=== PATIENT | female | born 1985 | race Caucasian/White ===

== ENCOUNTER 2021-01-16 17:25 | Inpatient (IN) | payer BC, MEDICAID ==
--- NOTE | 2021-01-16 17:31 | ERPHSYRPT ---
- History of Present Illness Time Seen by Provider: 01/16/21 17:30 Source: patient Exam Limitations: clinical condition Physician History: This is a 35-year-old diabetic obese white female who was having symptoms on 01/07/2021 of nausea vomiting fevers body aches and mild cough. She recently found out that she was positive for the COVID-19 virus. Patient was in the [facility] infusion unit earlier today and was running low oxygen saturation. Patient states that she was not significantly short of breath. Patient continued the infusion but her oxygen saturations were still low. she then opted to come to the emergency department for evaluation. Timing/Duration: day(s) Activities at Onset: none Severity of Dyspnea-Max: moderate Severity of Dyspnea-Current: moderate Possible Cause: illness exposure (Covid positive) Modifying Factors: Improves With: coughing Associated Symptoms: cough, No chest pain/discomfort Allergies/Adverse Reactions: Penicillins Allergy (Verified 01/16/21 17:37) Home Medications: Albuterol 8 gm Mdi Hfa [Ventolin Hfa MDI] 1 ea QID 01/16/21 [History] Azithromycin 250 mg [Zithromax 250 MG TABLET] 1 ea DAILY 01/16/21 [History] Benzonatate 1 ea TID 01/16/21 [History] Prednisone 10 mg [Deltasone 10 mg] 20 mg BID 01/16/21 [History] Travel Risk - International Travel Have you traveled outside of the country in past 3 weeks: No - Coronavirus Screening Are you exhibiting any of the following symptoms?: Yes Symptoms: Cough: New Onset, Shortness of Breath, Headaches/Body Aches/Fatigue Close contact with a COVID-19 positive Pt in past 14-21 Days: Yes - Vaccine Status Have you recieved a Covid-19 vaccination: Yes - Review of Systems Constitutional: No Symptoms Eyes: No Symptoms Ears, Nose, & Throat: No Symptoms Respiratory: Cough, Dyspnea Cardiac: No Symptoms Abdominal/Gastrointestinal: No Symptoms Genitourinary Symptoms: No Symptoms Musculoskeletal: No Symptoms Skin: No Symptoms Neurological: No Symptoms Psychological: No Symptoms Endocrine: No Symptoms Hematologic/Lymphatic: No Symptoms Immunological/Allergic: No Symptoms All Other Systems: Reviewed and Negative - Past Medical History Pertinent Past Medical History: Yes - Past Surgical History Past Surgical History: Yes - Nursing Vital Signs Nursing Vital Signs: Initial Vital Signs Temperature 97.2 F 01/16/21 17:26 Pulse Rate 105 H 01/16/21 17:26 Respiratory Rate 20 01/16/21 17:26 Blood Pressure 140/92 01/16/21 17:26 O2 Sat by Pulse Oximetry 88 L 01/16/21 17:26 Pain Scale Pain Intensity 3 - Physical Exam General Appearance: mild distress, alert, anxiety, obese Eye Exam: PERRL/EOMI, eyes nml inspection Ears, Nose, Throat Exam: hearing grossly normal, normal ENT inspection, normal pharynx Neck Exam: normal inspection, non-tender, supple, full range of motion Respiratory Exam: normal breath sounds, lungs clear, respiratory distress, airway intact, No chest tenderness Cardiovascular/Chest Exam: regular rate/rhythm, tachycardia Abdominal/Gastrointestinal Exam: soft, normal bowel sounds, No tenderness Rectal Exam: not done Extremity Exam: non-tender, normal range of motion, normal inspection, normal capillary refill, no calf tenderness, no pedal edema, pelvis stable, calf tender ness Neurologic Exam: alert, oriented x 3, cooperative, nursing staffing coordinator II-XII nml as tested, normal mood/affect, nml cerebellar function, nml station & gait, sensation nml Skin Exam: normal color, warm, dry Lymphatic Exam: No adenopathy SpO2 Interpretation: normal O2 Delivery: Room Air - Course Nursing assessment & vital signs reviewed: Yes EKG Interpreted by Me: RATE ([id number]), Sinus Tach, NORMAL AXIS, NORMAL INTERVALS, NORMAL QRS, NORMAL ST-T, Other (No acute ischemic changes on today's EKG. There is no comparison EKG available.) Ordered Tests: Active Orders 24 hr Category Date Time Status EKG-ER Only STAT Care 01/16/21 17:33 Active IV Insertion STAT Care 01/16/21 17:33 Active Isolation, Initiate & Maintain STAT Care 01/16/21 17:33 Active Pulse Oximetry (ED) STAT Care 01/16/21 17:33 Active CHEST 1 VIEW (PORTABLE) Stat Exams 01/16/21 17:34 Taken BLOOD CULTURE Stat Lab 01/16/21 18:03 Ordered CBC W DIFF Stat Lab 01/16/21 18:03 Completed CMP Stat Lab 01/16/21 18:03 Completed CULTURE,URINE Stat Lab 01/16/21 18:32 Received D-DIMER QUANTITATIVE Stat Lab 01/16/21 18:03 Completed Ferritin Stat Lab 01/16/21 18:03 Completed HCG,QUALITATIVE URINE Stat Lab 01/16/21 18:32 Completed INFLUENZA A+B FELICITA Stat Lab 01/16/21 18:05 Completed LDH-LACTATE DEHYDROGENASE Stat Lab 01/16/21 18:03 Completed Lactic Acid Stat Lab 01/16/21 18:16 Completed [place] Screen Stat Lab 01/16/21 18:03 Completed NT PRO BNP Stat Lab 01/16/21 18:03 Completed TROPONIN Q3H Lab 01/16/21 18:03 Completed TROPONIN Q3H Lab 01/16/21 20:45 Ordered TROPONIN Q3H Lab 01/16/21 23:45 Ordered TROPONIN Q3H Lab 01/17/21 02:45 Ordered TROPONIN Q3H Lab 01/17/21 05:45 Ordered UA W/RFX UR CULTURE Stat Lab 01/16/21 18:32 Completed Medication Summary Generic Name Dose Route Start Last Admin Trade Name Freq PRN Reason Stop Dose Admin Sodium Chloride 1,000 mls @ 100 mls/hr 01/16/21 17:45 01/16/21 18:23 Sodium Chloride 0.9% 1000 Ml IV 02/15/21 17:44 100 mls/hr .Q10H MARNI Administration Discontinued Medications Generic Name Dose Route Start Last Admin Trade Name Freq PRN Reason Stop Dose Admin Hydrocodone Bitart/Acetaminophen 10 ml 01/16/21 17:36 01/16/21 18:24 Hydrocodone-Acetamin 2.5-108/5 Ml Solution PO 01/16/21 17:37 10 ml STAT STA Administration Hydrocodone Bitart/Acetaminophen Confirm 01/16/21 18:12 Hydrocodone-Acetamin 2.5-108/5 Ml Solution Administered 01/16/21 18:13 Dose 10 ml .ROUTE .STK-MED ONE Dexamethasone Sodium Phosphate 8 mg 01/16/21 17:36 01/16/21 18:56 Decadron 10mg Inj. IV 01/16/21 17:37 8 mg STAT ONE Administration Dexamethasone Sodium Phosphate Confirm 01/16/21 18:40 Decadron 10mg Inj. Administered 01/16/21 18:41 Dose 10 mg .ROUTE .STK-MED ONE Lab/Rad Data: Laboratory Result Diagrams 01/16/21 18:03 09/09/21 18:03 Laboratory Results 01/16/21 01/16/21 01/16/21 Range/Units 18:32 18:32 18:16 WBC (4.0-10.5) K/mm3 RBC (4.1-5.4) M/mm3 Hgb (12.0-16.0) gm/dl Hct (35-47) % MCV (78-100) fl MCH (26-32) pg MCHC (32-36) g/dl RDW (11.5-14.0) % Plt Count (150-450) K/mm3 MPV (7.5-11.0) fl Gran % (36.0-66.0) % Eos # (Auto) (0-0.5) Absolute Lymphs (auto) (1.0-4.6) Absolute Monos (auto) (0.0-1.3) Lymphocytes % (24.0-44.0) % Monocytes % (0.0-12.0) % Eosinophils % (0.00-5.0) % Basophils % (0.0-0.4) % Absolute Granulocytes (1.4-6.9) Basophils # (0-0.4) D-Dimer (215-500) ng/mL Sodium (137-145) mmol/L Potassium (3.5-5.1) mmol/L Chloride (98-107) mmol/L Carbon Dioxide (22-30) mmol/L Anion Gap (5-15) MEQ/L BUN (7-17) mg/dL Creatinine (0.52-1.04) mg/dL Estimated GFR ML/MIN Glucose (74-106) mg/dL Lactic Acid 2.8 H (0.4-2.0) Calcium (8.4-10.2) mg/dL Ferritin (6.24-137) ng/mL Total Bilirubin (0.2-1.3) mg/dL AST (14-36) U/L ALT (0-35) U/L Alkaline Phosphatase (38-126) U/L Lactate Dehydrogenase (120-246) U/L Troponin I (0.000-0.034) ng/mL NT-Pro-B Natriuret Pep (0-450) pg/mL Serum Total Protein (6.3-8.2) g/dL Albumin (3.5-5.0) g/dL Urine Color RED (YELLOW) Urine Appearance CLOUDY (CLEAR) Urine pH 6.0 (5-6) Ur Specific Mcdaniel 1.022 (1.005-1.025) Urine Protein >=500 (Negative) Urine Ketones NEGATIVE (NEGATIVE) Urine Blood LARGE (0-5) Liang/ul Urine Nitrite NEGATIVE (NEGATIVE) Urine Bilirubin NEGATIVE (NEGATIVE) Urine Urobilinogen NEGATIVE (0-1) mg/dL Ur Leukocyte Esterase NEGATIVE (NEGATIVE) Urine WBC (Auto) 6-10 (0-5) /HPF Urine RBC (Auto) >101 (0-2) /HPF U Epithel Cells (Auto) RARE (FEW) /HPF Urine Bacteria (Auto) RARE (NEGATIVE) /HPF Urine Culture Reflexed YES (NO) Urine Glucose >=500 (NEGATIVE) mg/dL Urine HCG, Qual NEGATIVE (Negative) Monoscreen (Negative) Influenza Type A Ag (NEGATIVE) Influenza Type B Ag (NEGATIVE) Group A Strep Antibody (NEGATIVE) 01/16/21 01/16/21 01/16/21 Range/Units 18:05 18:05 18:03 WBC (4.0-10.5) K/mm3 RBC (4.1-5.4) M/mm3 Hgb (12.0-16.0) gm/dl Hct (35-47) % MCV (78-100) fl MCH (26-32) pg MCHC (32-36) g/dl RDW (11.5-14.0) % Plt Count (150-450) K/mm3 MPV (7.5-11.0) fl Gran % (36.0-66.0) % Eos # (Auto) (0-0.5) Absolute Lymphs (auto) (1.0-4.6) Absolute Monos (auto) (0.0-1.3) Lymphocytes % (24.0-44.0) % Monocytes % (0.0-12.0) % Eosinophils % (0.00-5.0) % Basophils % (0.0-0.4) % Absolute Granulocytes (1.4-6.9) Basophils # (0-0.4) D-Dimer (215-500) ng/mL Sodium (137-145) mmol/L Potassium (3.5-5.1) mmol/L Chloride (98-107) mmol/L Carbon Dioxide (22-30) mmol/L Anion Gap (5-15) MEQ/L BUN (7-17) mg/dL Creatinine (0.52-1.04) mg/dL Estimated GFR ML/MIN Glucose (74-106) mg/dL Lactic Acid (0.4-2.0) Calcium (8.4-10.2) mg/dL Ferritin (6.24-137) ng/mL Total Bilirubin (0.2-1.3) mg/dL AST (14-36) U/L ALT (0-35) U/L Alkaline Phosphatase (38-126) U/L Lactate Dehydrogenase (120-246) U/L Troponin I (0.000-0.034) ng/mL NT-Pro-B Natriuret Pep (0-450) pg/mL Serum Total Protein (6.3-8.2) g/dL Albumin (3.5-5.0) g/dL Urine Color (YELLOW) Urine Appearance (CLEAR) Urine pH (5-6) Ur Specific Mcdaniel (1.005-1.025) Urine Protein (Negative) Urine Ketones (NEGATIVE) Urine Blood (0-5) Liang/ul Urine Nitrite (NEGATIVE) Urine Bilirubin (NEGATIVE) Urine Urobilinogen (0-1) mg/dL Ur Leukocyte Esterase (NEGATIVE) Urine WBC (Auto) (0-5) /HPF Urine RBC (Auto) (0-2) /HPF U Epithel Cells (Auto) (FEW) /HPF Urine Bacteria (Auto) (NEGATIVE) /HPF Urine Culture Reflexed (NO) Urine Glucose (NEGATIVE) mg/dL Urine HCG, Qual (Negative) Monoscreen NEGATIVE (Negative) Influenza Type A Ag NEGATIVE (NEGATIVE) Influenza Type B Ag NEGATIVE (NEGATIVE) Group A Strep Antibody NOT DETECTED (NEGATIVE) 01/16/21 01/16/21 01/16/21 Range/Units 18:03 18:03 18:03 WBC (4.0-10.5) K/mm3 RBC (4.1-5.4) M/mm3 Hgb (12.0-16.0) gm/dl Hct (35-47) % MCV (78-100) fl MCH (26-32) pg MCHC (32-36) g/dl RDW (11.5-14.0) % Plt Count (150-450) K/mm3 MPV (7.5-11.0) fl Gran % (36.0-66.0) % Eos # (Auto) (0-0.5) Absolute Lymphs (auto) (1.0-4.6) Absolute Monos (auto) (0.0-1.3) Lymphocytes % (24.0-44.0) % Monocytes % (0.0-12.0) % Eosinophils % (0.00-5.0) % Basophils % (0.0-0.4) % Absolute Granulocytes (1.4-6.9) Basophils # (0-0.4) D-Dimer 1326 H* (215-500) ng/mL Sodium (137-145) mmol/L Potassium (3.5-5.1) mmol/L Chloride (98-107) mmol/L Carbon Dioxide (22-30) mmol/L Anion Gap (5-15) MEQ/L BUN (7-17) mg/dL Creatinine (0.52-1.04) mg/dL Estimated GFR ML/MIN Glucose (74-106) mg/dL Lactic Acid (0.4-2.0) Calcium (8.4-10.2) mg/dL Ferritin 305 H (6.24-137) ng/mL Total Bilirubin (0.2-1.3) mg/dL AST (14-36) U/L ALT (0-35) U/L Alkaline Phosphatase (38-126) U/L Lactate Dehydrogenase (120-246) U/L Troponin I < 0.012 (0.000-0.034) ng/mL NT-Pro-B Natriuret Pep (0-450) pg/mL Serum Total Protein (6.3-8.2) g/dL Albumin (3.5-5.0) g/dL Urine Color (YELLOW) Urine Appearance (CLEAR) Urine pH (5-6) Ur Specific Mcdaniel (1.005-1.025) Urine Protein (Negative) Urine Ketones (NEGATIVE) Urine Blood (0-5) Liang/ul Urine Nitrite (NEGATIVE) Urine Bilirubin (NEGATIVE) Urine Urobilinogen (0-1) mg/dL Ur Leukocyte Esterase (NEGATIVE) Urine WBC (Auto) (0-5) /HPF Urine RBC (Auto) (0-2) /HPF U Epithel Cells (Auto) (FEW) /HPF Urine Bacteria (Auto) (NEGATIVE) /HPF Urine Culture Reflexed (NO) Urine Glucose (NEGATIVE) mg/dL Urine HCG, Qual (Negative) Monoscreen (Negative) Influenza Type A Ag (NEGATIVE) Influenza Type B Ag (NEGATIVE) Group A Strep Antibody (NEGATIVE) 01/16/21 01/16/21 Range/Units 18:03 18:03 WBC 8.7 (4.0-10.5) K/mm3 RBC 4.45 (4.1-5.4) M/mm3 Hgb 12.7 (12.0-16.0) gm/dl Hct 40.7 (35-47) % MCV 91.5 (78-100) fl MCH 28.5 (26-32) pg MCHC 31.2 L (32-36) g/dl RDW 16.5 H (11.5-14.0) % Plt Count 294 (150-450) K/mm3 MPV 10.3 (7.5-11.0) fl Gran % 92.1 H (36.0-66.0) % Eos # (Auto) 0.01 (0-0.5) Absolute Lymphs (auto) 0.45 L (1.0-4.6) Absolute Monos (auto) 0.22 (0.0-1.3) Lymphocytes % 5.2 L (24.0-44.0) % Monocytes % 2.5 (0.0-12.0) % Eosinophils % 0.1 (0.00-5.0) % Basophils % 0.1 (0.0-0.4) % Absolute Granulocytes 7.96 H (1.4-6.9) Basophils # 0.01 (0-0.4) D-Dimer (215-500) ng/mL Sodium 135 L (137-145) mmol/L Potassium 4.2 (3.5-5.1) mmol/L Chloride 103 (98-107) mmol/L Carbon Dioxide 18 L (22-30) mmol/L Anion Gap 17.9 H (5-15) MEQ/L BUN 28 H (7-17) mg/dL Creatinine 1.54 H (0.52-1.04) mg/dL Estimated GFR 40.5 ML/MIN Glucose 388 H (74-106) mg/dL Lactic Acid (0.4-2.0) Calcium 8.1 L (8.4-10.2) mg/dL Ferritin (6.24-137) ng/mL Total Bilirubin 0.40 (0.2-1.3) mg/dL AST 106 H (14-36) U/L ALT 41 H (0-35) U/L Alkaline Phosphatase 89 (38-126) U/L Lactate Dehydrogenase 879 H (120-246) U/L Troponin I (0.000-0.034) ng/mL NT-Pro-B Natriuret Pep 267 (0-450) pg/mL Serum Total Protein 7.3 (6.3-8.2) g/dL Albumin 3.8 (3.5-5.0) g/dL Urine Color (YELLOW) Urine Appearance (CLEAR) Urine pH (5-6) Ur Specific Mcdaniel (1.005-1.025) Urine Protein (Negative) Urine Ketones (NEGATIVE) Urine Blood (0-5) Liang/ul Urine Nitrite (NEGATIVE) Urine Bilirubin (NEGATIVE) Urine Urobilinogen (0-1) mg/dL Ur Leukocyte Esterase (NEGATIVE) Urine WBC (Auto) (0-5) /HPF Urine RBC (Auto) (0-2) /HPF U Epithel Cells (Auto) (FEW) /HPF Urine Bacteria (Auto) (NEGATIVE) /HPF Urine Culture Reflexed (NO) Urine Glucose (NEGATIVE) mg/dL Urine HCG, Qual (Negative) Monoscreen (Negative) Influenza Type A Ag (NEGATIVE) Influenza Type B Ag (NEGATIVE) Group A Strep Antibody (NEGATIVE) - Progress Progress: improved, re-examined Air Movement: fair Progress Note: 01/16/21 20:20 Chest x-ray shows by bibasilar interstitial alveolar opacities. No obvious pleural effusions or other acute cardiopulmonary findings 01/16/21 20:24 Medical decision making: This patient has diabetes, is COVID-19 positive, has a urinary tract infection and hyperglycemia. The patient presents emergency department hypoxic on room air. Spoke with Dr. Vargas and he agrees that we need to place this patient on the Covid unit. We will provide the patient with regular insulin sliding scale, remdesivir, steroids and hydrocodone cough syrup. Blood Culture(s) Obtained: Yes Antibiotics given: Yes Discussed with Dr.: Other (Dr. Vargas) Counseled pt/family regarding: lab results, diagnosis, need for follow-up, rad results - Departure Departure Disposition: In-patient Admission Clinical Impression: Hypoxia, COVID-19 virus infection, UTI (urinary tract infection) Condition: Fair Critical Care Time: Yes Critical Care Time(excluding separately billable procedures): Critical 30-74 mi ns Referrals: SHARIF DE LEON [Primary Care Provider] -
[2021-01-16] MEDS ORDERED: DECADRON 10MG INJ. IV ONE (17:36)
[2021-01-16] MEDS ORDERED: HYDROCODONE-ACETAMIN 2.5-108/5 ML SOLUTION PO STA (17:36)
[2021-01-16] MEDS ORDERED: Sodium Chloride 0.9% 1000 ML 1,000 ML IV SCH ×2 (17:45→22:46)
[2021-01-16] MEDS ORDERED: HYDROCODONE-ACETAMIN 2.5-108/5 ML SOLUTION ONE (18:12)
[2021-01-16 18:21] LABS: Absolute Neutrophil Ct (ANC) 7.96 (1.4-6.9); BASOPHIL % 0.1 % (0.0-0.4); Basophil (Absolute #) 0.01 (0-0.4); Eosinophil % 0.1 % (0.00-5.0); Eosinophil (Absolute #) 0.01 (0-0.5); Hematocrit 40.7 % (35-47); Hemoglobin 12.7 gm/dl (12.0-16.0); Lymphocyte (Absolute #) 0.45 (1.0-4.6); Lymphocytes % 5.2 % (24.0-44.0); Mean Cell Volume 91.5 fl (78-100); Mean Corpuscular Hemoglobin 28.5 pg (26-32); Mean Corpuscular Hgb Concent. 31.2 g/dl (32-36); Mean Platelet Volume 10.3 fl (7.5-11.0); Monocyte (Absolute #) 0.22 (0.0-1.3); Monocytes % 2.5 % (0.0-12.0); Neutrophil % 92.1 % (36.0-66.0); Platelet Count 294 K/mm3 (150-450); Red Blood Count 4.45 M/mm3 (4.1-5.4); Red Cell Distribution Width 16.5 % (11.5-14.0); White Blood Count 8.7 K/mm3 (4.0-10.5)
[2021-01-16 18:39] LABS: Appearance CLOUDY (CLEAR); Bacteria RARE /HPF (NEGATIVE); Bilirubin NEGATIVE (NEGATIVE); Blood LARGE Ery/ul (0-5); Epithelial Cells RARE /HPF (FEW); Glucose >=500 mg/dL (NEGATIVE); Ketones NEGATIVE (NEGATIVE); Leukocyte Esterase NEGATIVE (NEGATIVE); Nitrite NEGATIVE (NEGATIVE); Protein,Urine Dip >=500 (Negative); RBC >101 /HPF (0-2); Specific Gravity 1.022 (1.005-1.025); Urobilinogen NEGATIVE mg/dL (0-1)
[2021-01-16] MEDS ORDERED: DECADRON 10MG INJ. ONE (18:40)
[2021-01-16 18:51] LABS: INFLUENZA A NEGATIVE (NEGATIVE); INFLUENZA B NEGATIVE (NEGATIVE)
[2021-01-16 18:56] LABS: ALBUMIN 3.8 g/dL (3.5-5.0); ANION GAP 17.9 MEQ/L (5-15); BILIRUBIN,TOTAL 0.4 mg/dL (0.2-1.3); Calcium 8.1 mg/dL (8.4-10.2); Creatinine 1 1.54 mg/dL (0.52-1.04); EST GLOMERULAR FILTRATION RATE 40.5 ML/MIN; Potassium 4.2 mmol/L (3.5-5.1); Total Protein 7.3 g/dL (6.3-8.2)
[2021-01-16] MEDS ORDERED: ENOXAPARIN SODIUM SQ ONE (20:32)
[2021-01-16] MEDS ORDERED: TYLENOL EXTRA STRENGTH 500 MG PO PRN (22:35)
[2021-01-16] MEDS ORDERED: Robitussin-Dm Syrup PO PRN (22:36)
[2021-01-16] MEDS ORDERED: TYLENOL 325 MG PO PRN (22:46)
[2021-01-16] MEDS ORDERED: HUMULIN R SQ PRN (22:46)
[2021-01-16] MEDS ORDERED: REMDESIVIR 200 MG in Sodium Chloride 0.9% 250 ML 250 ML IV ONE ×2 (22:46→23:00)
[2021-01-16] MEDS ORDERED: ENOXAPARIN SODIUM SQ SCH (22:46)
[2021-01-16] MEDS ORDERED: Zofran 4 MG/2 ML VIAL IV PRN (22:46)
[2021-01-17 00:05] LABS: A-aADO2 604; ABG HEMOGLOBIN 12.9; ABG POTASSIUM 4.6 (3.5-5.1); ARTERIAL BLD GAS O2 SATURATION 93.1 % (95-100); ARTERIAL BLOOD GAS BASE EXCESS -3.3 (-2.0-2.0); ARTERIAL BLOOD GAS FIO2 100 %; ARTERIAL BLOOD GAS PCO2 36 mmHg (35-45); ARTERIAL BLOOD GAS PO2 64 mmHg (75-100); ARTERIAL BLOOD GAS pH 7.38 (7.35-7.45); HCO3- 21.3 (22-28); HGB O2 SAT 91.4 g/dF (94-100); Methhemoglobin 0.7 % (1.4-1.5)
[2021-01-17 00:06] LABS: ABG SITE RIGHT BRACHIAL
[2021-01-17] MEDS ORDERED: Lasix 20 MG/2 ML IV ONE (00:24)
[2021-01-17] MEDS: HUMALOG SQ PRN ×5 (00:34→21:02)
[2021-01-17 01:22] LABS: Slide Review 1 YES
[2021-01-17 04:01] LABS: A-aADO2 568; ABG HEMOGLOBIN 16.1; ABG POTASSIUM 4.1 (3.5-5.1); ABG SITE RIGHT BRACHIAL; ARTERIAL BLD GAS O2 SATURATION 97.5 % (95-100); ARTERIAL BLOOD GAS BASE EXCESS -3.3 (-2.0-2.0); ARTERIAL BLOOD GAS FIO2 100 %; ARTERIAL BLOOD GAS PCO2 40 mmHg (35-45); ARTERIAL BLOOD GAS PO2 95 mmHg (75-100); ARTERIAL BLOOD GAS VENT MODE BiPAP; ARTERIAL BLOOD GAS pH 7.35 (7.35-7.45); CARBOXYHEMOGLOBIN 0.6 % THgb (0.0-6.9); HCO3- 22.1 (22-28); HGB O2 SAT 96.2 g/dF (94-100); Methhemoglobin 0.7 % (1.4-1.5)
[2021-01-17] MEDS ORDERED: DECADRON 10MG INJ. IV SCH (06:00)
[2021-01-17 06:30] LABS: Hematocrit 38.4 % (35-47); Hemoglobin 12.1 gm/dl (12.0-16.0); Mean Cell Volume 91.2 fl (78-100); Mean Corpuscular Hemoglobin 28.7 pg (26-32); Mean Corpuscular Hgb Concent. 31.5 g/dl (32-36); Mean Platelet Volume 10.4 fl (7.5-11.0); Platelet Count 302 K/mm3 (150-450); Red Blood Count 4.21 M/mm3 (4.1-5.4); Red Cell Distribution Width 16.7 % (11.5-14.0); White Blood Count 9.8 K/mm3 (4.0-10.5)
[2021-01-17 07:32] LABS: ALBUMIN 3.4 g/dL (3.5-5.0); ANION GAP 15.7 MEQ/L (5-15); BILIRUBIN,TOTAL 0.4 mg/dL (0.2-1.3); Calcium 7.7 mg/dL (8.4-10.2); Creatinine 1 1.47 mg/dL (0.52-1.04); EST GLOMERULAR FILTRATION RATE 42.7 ML/MIN; Potassium 4.3 mmol/L (3.5-5.1); Total Protein 6.8 g/dL (6.3-8.2)
[2021-01-17 07:56] LABS: BAND 22 % (0.0-2.0); Lymphocytes 4 % (24-44); Monocyte 3 % (0.0-12.0); Neutrophils 71 % (36.0-66.0); Platelet Estimate NORMAL (NORMAL); Total Cells Counted 100
[2021-01-17 07:57] LABS: Absolute Neutrophil Ct (ANC) 9.11 (1.4-6.9)
--- NOTE | 2021-01-17 08:51 | XRAY ---
Indication: Cough, short of breath, hypoxia. Positive Covid 19. Comparison: January 14, 2021. Portable chest demonstrates worsening diffuse bilateral airspace disease today appearing more consolidating especially left lung base. Remaining heart and lungs unremarkable.
--- NOTE | 2021-01-17 08:53 | XRAY ---
Indication: Short of breath. Comparison: One day earlier. Portable chest again underinflated with grossly stable diffuse bilateral consolidating/nonconsolidating airspace disease without large effusion. Heart not enlarged. No new cardiopulmonary abnormalities. Comment: Preliminary interpretation made by [facility]. No critical discrepancy.
[2021-01-17] MEDS ORDERED: ENOXAPARIN SODIUM SQ SCH (10:00)
[2021-01-17] MEDS ORDERED: ROCEPHIN 1 Gm-D5w 50 ml Bag** 1 G/50 ML IVPB IV SCH (10:00)
[2021-01-17] MEDS: DECADRON 10MG INJ. IV SCH (10:24)
[2021-01-17] MEDS: OLUMIANT PO SCH (12:15)
--- NOTE | 2021-01-17 15:28 | HP ---
CHIEF COMPLAINT: Shortness of breath, cough, aching all over. HISTORY OF PRESENT ILLNESS: The patient came into the emergency room on 01/16/2021 with the above complaints. She has been feeling bad since 01/07/2021 with nausea and vomiting. She tested positive for COVID and received some COVID antibodies. She was low on oxygen but not significantly short of breath and she returned home and now she came to the emergency room feeling worse. O2 saturations are running 88-86% area. She was markedly dyspneic when she appeared in the emergency room. She has two - 15 year-old sons at home because their school has been closed down due to COVID. Apparently she does not think they are sick. MEDICATIONS: Ventolin 1 puff four times a day, Zithromax 1 daily, Benzoin 8 PRN, prednisone 10 - two b.i.d. since 01/16/2021 for her COVID which was started before the emergency room visit. ALLERGIES: PENICILLIN. PAST SURGICAL HISTORY: Tubal ligation. REVIEW OF SYSTEMS: HEENT: No problems hearing or seeing. CHEST: Kind of aches all over, frequent cough, short of breath at rest. CVS: No exertional pain or palpitations. ABDOMEN: She has had nausea or vomiting four to five times a day for several days. EXTREMITIES: Aching all over, weak. PHYSICAL EXAMINATION: VITAL SIGNS: Pulse 105, respiration rate 20, blood pressure 140/92. O2 saturations 88 on 2 liters. GENERAL: The patient is in mild distress. She is alert, anxious and obese. HEENT: Pupils equal and reactive to light. Hears and sees normal. Throat is normal. NECK: No JVD. No thyromegaly. CHEST: Clear, tachypnea. No tenderness of the sternum. CVS: Slightly fast. No murmurs or gallops. ABDOMEN: Soft. No masses or organomegaly. No tenderness. EXTREMITIES: No edema. Normal color. NEUROLOGIC: Normal. LAB DATA AND TESTS: EKG showed sinus tachycardia otherwise normal. IMPRESSION: The patient has COVID pneumonitis, possible COVID gastritis. PLAN: She will be treated with Decadron, Remdesivir, antibodies and oxygen. The chest x-ray showed bilateral interstitial alveolar opacities. She seems to be getting slowly worse while she is in the emergency room and we transferred her to the COVID unit.
[2021-01-17] MEDS: BACTRIM DS TABLET PO SCH (17:00)
[2021-01-17] MEDS ORDERED: REMDESIVIR 100 MG in Sodium Chloride 0.9% 100 ML BAG 100 ML IV SCH (22:00)
[2021-01-17] MEDS: REMDESIVIR 100 MG in Sodium Chloride 0.9% 100 ML BAG 100 ML IV SCH (23:14)
[2021-01-18] MEDS: HUMALOG SQ PRN ×4 (08:09→21:54)
[2021-01-18] MEDS: BACTRIM DS TABLET PO SCH ×2 (08:09→17:12)
[2021-01-18] MEDS: OLUMIANT PO SCH ×3 (10:17→10:29)
[2021-01-18] MEDS: DECADRON 10MG INJ. IV SCH (10:17)
[2021-01-18] MEDS: ENOXAPARIN SODIUM SQ SCH (10:17)
[2021-01-18] MEDS: REMDESIVIR 100 MG in Sodium Chloride 0.9% 100 ML BAG 100 ML IV SCH (21:54)
[2021-01-18] MEDS: HYDROCODONE-ACETAMIN 2.5-108/5 ML SOLUTION PO PRN (23:17)
[2021-01-19] MEDS: BACTRIM DS TABLET PO SCH ×2 (08:24→17:16)
[2021-01-19] MEDS: HUMALOG SQ PRN ×4 (08:25→21:48)
[2021-01-19] MEDS: DECADRON 10MG INJ. IV SCH (10:44)
[2021-01-19] MEDS: ENOXAPARIN SODIUM SQ SCH (10:45)
[2021-01-19] MEDS: OLUMIANT PO SCH (10:45)
[2021-01-19 12:31] LABS: Hematocrit 40.6 % (35-47); Hemoglobin 12.9 gm/dl (12.0-16.0); Mean Corpuscular Hemoglobin 28.9 pg (26-32); Mean Corpuscular Hgb Concent. 31.8 g/dl (32-36); Mean Platelet Volume 9.6 fl (7.5-11.0); Platelet Count 359 K/mm3 (150-450); Red Blood Count 4.46 M/mm3 (4.1-5.4); Red Cell Distribution Width 16.1 % (11.5-14.0); White Blood Count 13.3 K/mm3 (4.0-10.5)
[2021-01-19 12:42] LABS: ALBUMIN 3.5 g/dL (3.5-5.0); BILIRUBIN,TOTAL 0.3 mg/dL (0.2-1.3); Calcium 8.8 mg/dL (8.4-10.2); Creatinine 1 1.34 mg/dL (0.52-1.04); EST GLOMERULAR FILTRATION RATE 47.6 ML/MIN; Potassium 4.7 mmol/L (3.5-5.1); Total Protein 6.9 g/dL (6.3-8.2)
[2021-01-19] MEDS: REMDESIVIR 100 MG in Sodium Chloride 0.9% 100 ML BAG 100 ML IV SCH (20:55)
[2021-01-20 06:41] LABS: Hematocrit 44.2 % (35-47); Hemoglobin 13.7 gm/dl (12.0-16.0); Mean Cell Volume 93.1 fl (78-100); Mean Corpuscular Hemoglobin 28.8 pg (26-32); Mean Platelet Volume 10.8 fl (7.5-11.0); Platelet Count 280 K/mm3 (150-450); Red Blood Count 4.75 M/mm3 (4.1-5.4); Red Cell Distribution Width 16.2 % (11.5-14.0); White Blood Count 12.8 K/mm3 (4.0-10.5)
[2021-01-20 06:52] LABS: ALBUMIN 3.7 g/dL (3.5-5.0); ANION GAP 16.9 MEQ/L (5-15); BILIRUBIN,TOTAL 0.6 mg/dL (0.2-1.3); Calcium 8.9 mg/dL (8.4-10.2); Creatinine 1 1.23 mg/dL (0.52-1.04); EST GLOMERULAR FILTRATION RATE 52.5 ML/MIN; Total Protein 7.4 g/dL (6.3-8.2)
[2021-01-20 06:54] LABS: INR 1.14 (0.8-3.0); PROTIME 13.5 SECONDS (9.4-12.5)
[2021-01-20 06:55] LABS: PTT 27.3 SECONDS (25.1-36.5)
--- NOTE | 2021-01-20 10:35 | XRAY ---
Indication: Positive Covid 19. Comparison: January 17, 2021. Portable chest slightly better inflated and rotated with grossly stable diffuse bilateral air space disease. Heart not enlarged. No new cardiopulmonary abnormalities.
[2021-01-20] MEDS: BACTRIM DS TABLET PO SCH (10:47)
[2021-01-20] MEDS: ENOXAPARIN SODIUM SQ SCH (10:47)
[2021-01-20] MEDS: DECADRON 10MG INJ. IV SCH (10:47)
[2021-01-20] MEDS: OLUMIANT PO SCH (10:48)
[2021-01-20 12:23] LABS: Appearance CLEAR (CLEAR); Bilirubin NEGATIVE (NEGATIVE); Blood NEGATIVE Ery/ul (0-5); Glucose NEGATIVE (NEGATIVE); Ketones NEGATIVE (NEGATIVE); Leukocyte Esterase NEGATIVE (NEGATIVE); Mucus SLIGHT /HPF (NEGATIVE); Nitrite NEGATIVE (NEGATIVE); Protein,Urine Dip NEGATIVE (Negative); Specific Gravity 1.018 (1.005-1.025); Urobilinogen NEGATIVE mg/dL (0-1)
[2021-01-20] MEDS ORDERED: Sodium Chloride 0.9% 250 ML 250 ML IV SCH (12:30)
[2021-01-20] MEDS: Glucophage 500 MG PO SCH ×2 (13:24→16:39)
--- NOTE | 2021-01-20 13:40 | XRAY ---
Indication: PICC line placement. Comparison: Taken earlier in the day. Portable chest demonstrates new right arm PICC line with tip projecting over the SVC. Lungs are now underinflated with grossly stable diffuse bilateral airspace disease. Heart not enlarged. No new cardiopulmonary abnormalities.
[2021-01-20] MEDS: Ativan 2 MG/1 ML VIAL IV PRN ×2 (14:59→17:54)
[2021-01-20] MEDS: HYDROCODONE-ACETAMIN 2.5-108/5 ML SOLUTION PO PRN (16:38)
[2021-01-20] MEDS: HUMALOG SQ PRN (16:39)
[2021-01-20] MEDS ORDERED: Ativan 2 MG/1 ML VIAL IV PRN ×2 (18:08→19:46)
[2021-01-20] MEDS ORDERED: SUBLIMAZE 100 MCG/2 ML ONE (20:35)
[2021-01-20] MEDS ORDERED: Sodium Chloride 0.9% 250 ML 250 ML IV ONE (21:07)
[2021-01-20] MEDS ORDERED: Versed 50 MG/ 10 Ml MDV ONE (21:07)
[2021-01-20] MEDS: Versed 50 MG/ 10 Ml MDV*** 50 MG in Sodium Chloride 0.9% 250 ML 240 ML IV PRN (21:10)
[2021-01-20] MEDS ORDERED: Dextrose 5%/Water IV Soln. 250 ML 250 ML IV ONE (21:23)
[2021-01-20] MEDS: Nimbex 200MG/20 Ml MDV (HIGH RISK MED)** 200 MG in Dextrose 5%/Water IV Soln. 250 ML 18... IV SCH (21:25)
[2021-01-20] MEDS ORDERED: Sodium Chloride 0.9% 150 ML 150 ML IV ONE (21:30)
[2021-01-20] MEDS ORDERED: FENTANYL 500 MCG/10 ML VIAL IV ONE (21:30)
[2021-01-20 21:34] LABS: A-aADO2 572; ABG HEMOGLOBIN 13.5; ABG POTASSIUM 5.2 (3.5-5.1); ABG SITE RIGHT RADIAL; ARTERIAL BLD GAS O2 SATURATION 94.8 % (95-100); ARTERIAL BLD GAS TIDAL VOLUME 500 cc; ARTERIAL BLOOD GAS BASE EXCESS 0.8 (-2.0-2.0); ARTERIAL BLOOD GAS FIO2 100 %; ARTERIAL BLOOD GAS PCO2 49 mmHg (35-45); ARTERIAL BLOOD GAS PO2 80 mmHg (75-100); ARTERIAL BLOOD GAS VENT MODE A/C; ARTERIAL BLOOD GAS pH 7.35 (7.35-7.45); CARBOXYHEMOGLOBIN 0.9 % THgb (0.0-6.9); HCO3- 27.1 (22-28); HGB O2 SAT 93.3 g/dF (94-100); Methhemoglobin 0.7 % (1.4-1.5)
[2021-01-20] MEDS: SUBLIMAZE 1000 Mcg/ 20 Ml*** 1,500 MCG in Sodium Chloride 0.9% 150 ML 120 ML IV SCH (21:35)
[2021-01-20] MEDS ORDERED: VERSED 5 MG/5 ML IV ONE (21:45)
[2021-01-20] MEDS: REMDESIVIR 100 MG in Sodium Chloride 0.9% 100 ML BAG 100 ML IV SCH (23:18)
[2021-01-21] MEDS ORDERED: FEVERALL 650 MG PR PRN (03:33)
[2021-01-21 04:20] LABS: A-aADO2 552; ABG HEMOGLOBIN 13.8; ARTERIAL BLD GAS O2 SATURATION 94.6 % (95-100); ARTERIAL BLOOD GAS BASE EXCESS -4.6 (-2.0-2.0); ARTERIAL BLOOD GAS FIO2 100 %; ARTERIAL BLOOD GAS PO2 82 mmHg (75-100); CARBOXYHEMOGLOBIN 0.8 % THgb (0.0-6.9); HCO3- 24.6 (22-28); Methhemoglobin 0.9 % (1.4-1.5)
[2021-01-21 04:21] LABS: ABG POTASSIUM 6.7 (3.5-5.1); ABG SITE LEFT RADIAL; ALLEN TEST OK? YES; ARTERIAL BLD GAS TIDAL VOLUME 500 cc; ARTERIAL BLOOD GAS PCO2 63 mmHg (35-45); ARTERIAL BLOOD GAS PEEP 10 cmH2O; ARTERIAL BLOOD GAS VENT MODE A/C; ARTERIAL BLOOD GAS VENT RATE 16 /MIN
[2021-01-21] MEDS ORDERED: Versed 50 MG/ 10 Ml MDV ONE (05:32)
[2021-01-21] MEDS ORDERED: Dextrose 5%/Water IV Soln. 250 ML 250 ML IV ONE (05:37)
[2021-01-21] MEDS ORDERED: Sodium Chloride 0.9% 250 ML 250 ML IV ONE (05:38)
[2021-01-21] MEDS: Nimbex 200MG/20 Ml MDV (HIGH RISK MED)** 200 MG in Dextrose 5%/Water IV Soln. 250 ML 18... IV SCH (05:48)
[2021-01-21] MEDS: Versed 50 MG/ 10 Ml MDV*** 50 MG in Sodium Chloride 0.9% 250 ML 240 ML IV PRN ×3 (05:49)
[2021-01-21 06:31] LABS: Hematocrit 40.5 % (35-47); Hemoglobin 12.2 gm/dl (12.0-16.0); Mean Corpuscular Hemoglobin 28.3 pg (26-32); Mean Corpuscular Hgb Concent. 30.1 g/dl (32-36); Mean Platelet Volume 10.2 fl (7.5-11.0); Platelet Count 210 K/mm3 (150-450); Red Blood Count 4.31 M/mm3 (4.1-5.4); Red Cell Distribution Width 16.1 % (11.5-14.0); White Blood Count 15.7 K/mm3 (4.0-10.5)
[2021-01-21] MEDS: Glucophage 500 MG PO SCH (07:09)
[2021-01-21] MEDS ORDERED: Sodium Chloride 0.9% 1000 ML 1,000 ML IV SCH (07:45)
[2021-01-21 08:18] LABS: Lymphocytes 16 % (24-44); Monocyte 5 % (0.0-12.0); Neutrophils 79 % (36.0-66.0); Total Cells Counted 100
[2021-01-21 08:19] LABS: ANISOCYTOSIS 1+; Platelet Estimate NORMAL (NORMAL); Toxic Granulation 1+
--- NOTE | 2021-01-21 08:41 | CONS ---
CONSULT DATE: 01/20/2021 HISTORY: Kalli Aviles is a 35-year-old woman who has been admitted at [facility] with complaints of shortness of breath. The patient tested positive for COVID on 01/07/2021. She was seen on 01/16/2021 and since then has been treated with conventional available therapy. She has unfortunately not shown meaningful clinical improvement. She does remain fairly hypoxic and is currently saturating 89% on high flow. An attempt to use noninvasive ventilation here was unsuccessful as the patient got into a panic attack. The patient is arousable. She is able to appropriately answer "Yes or No" but appears weak otherwise. PAST MEDICAL HISTORY: Essentially negative. PAST SURGICAL HISTORY: Tubal ligation. PERSONAL AND SOCIAL HISTORY: Not available. MEDICATIONS: Medications reviewed. ALLERGIES: PENICILLINS. PHYSICAL EXAMINATION: This is a middle aged woman who appears tired. The patient is laying in the right lateral position. Vital signs noted. HEENT: Normocephalic. Oral exam is limited. NECK: Supple. CVS: First and second heart sounds are normal, regular, rhythmic with mild tachycardia. RESPIRATORY: Shows diminished breath sounds, crackles are heard. ABDOMEN: Obese. EXTREMITIES: Trace edema is noted. LABORATORY DATA AND TESTS: UA is unremarkable. D-dimer 7137. Sodium 144, potassium 5.0, chloride 108, bicarb 24, BUN 35, creatinine 1.2. White count 12.8, hemoglobin 13.7, hematocrit 44, PLT 280,000. Chest x-ray was reviewed. Urine culture grew Escherichia coli essentially lam-sensitive. ASSESSMENT: This is a 35-year-old woman admitted with: 1) Severe hypoxic respiratory failure. 2) COVID-19 infection. 3) Viral pneumonitis. 4) Urinary tract infection present on admission improved with IV antibiotics. 5) Obesity. RECOMMENDATIONS: 1) I agree with the present treatment. 2) The patient has nearly completed Remdesivir therapy, continue oral agents for now. 3) I agree with anticoagulation. 4) The patient has been tried on noninvasive ventilation, will reattempt with help of possible sedation. Her oxygenation is marginal at best and the patient may require ventilator support, will observe overnight and will be available as needed. If intubated will consider transferring her to [place] for further care. Discussed this plan of care with nursing staff.
--- NOTE | 2021-01-21 08:49 | XRAY ---
Indication: Endotracheal tube placement. Comparison: Taken earlier in the day. Portable chest demonstrates new endotracheal tube tip 4 cm above kacie, new NG tube tip in stomach, and stable right arm PICC line tip projecting over proximal SVC. Remaining chest demonstrates grossly stable diffuse bilateral airspace disease. Heart not enlarged. No new cardiopulmonary abnormalities. Comment: Preliminary interpretation made by [facility]. No critical discrepancy.
[2021-01-21] MEDS: DECADRON 10MG INJ. IV SCH (09:03)
[2021-01-21] MEDS: ENOXAPARIN SODIUM SQ SCH (09:03)
[2021-01-21] MEDS ORDERED: DUONEB 0.5-3 MG/3 ml Neb IH ONE (09:08)
[2021-01-21] MEDS: OLUMIANT PO SCH (09:25)
[2021-01-21] MEDS ORDERED: DUONEB 0.5-3 MG/3 ml Neb IH PRN (09:33)
[2021-01-21 09:46] LABS: A-aADO2 539; ABG HEMOGLOBIN 12.6; ARTERIAL BLD GAS TIDAL VOLUME 500 cc; ARTERIAL BLOOD GAS BASE EXCESS -1.3 (-2.0-2.0); ARTERIAL BLOOD GAS FIO2 100 %; ARTERIAL BLOOD GAS PCO2 43 mmHg (35-45); ARTERIAL BLOOD GAS PO2 120 mmHg (75-100); ARTERIAL BLOOD GAS VENT MODE A/C; ARTERIAL BLOOD GAS pH 7.36 (7.35-7.45); CARBOXYHEMOGLOBIN 0.7 % THgb (0.0-6.9); HCO3- 24.3 (22-28); HGB O2 SAT 97.6 g/dF (94-100); Methhemoglobin 0.8 % (1.4-1.5)
[2021-01-21 09:47] LABS: ABG POTASSIUM 6.2 (3.5-5.1); ABG SITE LEFT RADIAL
[2021-01-21 09:47] LABS: ALBUMIN 3.2 g/dL (3.5-5.0); BILIRUBIN,TOTAL 0.8 mg/dL (0.2-1.3); Calcium 7.9 mg/dL (8.4-10.2); Creatinine 1 1.48 mg/dL (0.52-1.04); EST GLOMERULAR FILTRATION RATE 42.4 ML/MIN; Total Protein 6.3 g/dL (6.3-8.2)
[2021-01-21 09:52] LABS: Potassium 5.9 mmol/L (3.5-5.1)
[2021-01-21 09:53] LABS: ANION GAP 17.9 MEQ/L (5-15)
[2021-01-21] MEDS: HUMALOG SQ PRN (09:55)
[2021-01-21] MEDS: SUBLIMAZE 1000 Mcg/ 20 Ml*** 1,500 MCG in Sodium Chloride 0.9% 150 ML 120 ML IV SCH (09:57)
[2021-01-21] MEDS ORDERED: Pepcid 20 MG VIAL IV SCH (10:00)
[2021-01-21] MEDS ORDERED: ENOXAPARIN SODIUM SQ ONE (10:15)
[2021-01-21] MEDS ORDERED: Calcium Gluconate 10% 1000 MG IV ONE (10:18)
[2021-01-21] MEDS ORDERED: Kayexylate 15 GM/60 ML PO ONE (10:22)
[2021-01-21] MEDS ORDERED: Kayexylate 15 GM/60 ML NG ONE (10:30)
[2021-01-21] MEDS ORDERED: Lubrifresh P.M. 3.5 gm Ointment OP PRN (10:49)
[2021-01-21] MEDS ORDERED: HUMULIN R IV PRN (11:30)
[2021-01-21 12:15] VITALS: BP 158/88; PULSE 98; O2SAT 95
[2021-01-21] MEDS ORDERED: ENOXAPARIN SODIUM SQ SCH (22:00)
[2021-01-21] MEDS ORDERED: REMDESIVIR 100 MG in Sodium Chloride 0.9% 100 ML BAG 100 ML IV SCH (22:00)
--- NOTE | 2021-01-29 08:26 | DS ---
ADMISSION DIAGNOSES: 1) Bilateral COVID pneumonia. 2) Respiratory distress. Date of transfer was 01/21/2021. DISCHARGE DIAGNOSES: 1) RESPIRATORY DISTRESS. 2) COVID PNEUMONIA. HISTORY: The patient is back from [place] where she went with the family for vacation. In the emergency room her two saturations were 88 and 66 and she was markedly dyspneic with any movement. She has two - 15 year-old sons at home because their school had been closed down due to COVID. At home she tried some Zithromax, Benzoin, prednisone, Ventolin without improvement for a few days. Normally she has no problems breathing. PHYSICAL EXAMINATION: She is slightly heavy, respiratory distress and on 4 liters. O2 saturations 88%. CHEST: Wheezing bilateral. ABDOMEN: Obese. No masses or organomegaly. HOSPITAL COURSE: The patient continued fighting being short of breath and had to stack oxygen. She was seen in consultation by Dr. Martinez. D-dimer went up to 7,000. She was on Decadron, Remdesivir and anticoagulated. She was placed on the vent on 01/21/2021 due to respiratory distress, unable to maintain her respiration and stabilized and finally she was transferred when a bed was available at [facility] under the care of Dr. Lul Martinez. PROGNOSIS: Fair.
== END 2021-01-21 12:15 | disposition short-term general hospital (02) | DRG 177 ==
LOC: ED 17:25 → MED SURG 22:43
PROVIDERS: ADMIT Family Medicine; ATTEND Family Medicine
DX: U07.1 COVID-19 (principal); J12.82 Pneumonia due to coronavirus disease 2019; J96.01 Acute respiratory failure with hypoxia; N39.0 Urinary tract infection, site not specified; E66.9 Obesity, unspecified; E11.9 Type 2 diabetes mellitus without complications; Z79.899 Other long term (current) drug therapy; R11.2 Nausea with vomiting, unspecified
CPT/HCPCS: 31500; 36415; 36573; 36600; 71045; 80053; 81001; 82375; 82728; 82803; 82947; 83036; 83605; 83615; 83880; 84484; 84703; 85025; 85027; 85379; 85610; 85730; 86308; 87040; 87077; 87086; 87186; 87400; 87651; 93005; 94002; 94003; 94640; 94760; 94762; 94770; 96372; 96374; 99285; 99291; J0610; J1100; J1650; J1815; J1817; J1940; J2060; J2250; J3010; U0003; A9270-GY